=== PATIENT | male | born 1985 | race African-American/Black ===

== ENCOUNTER 2020-09-07 11:54 | Emergency (ER) | payer MEDICAID ==
[~2020-09-07] VITALS: Ht 182.9 cm; Wt 77.1 kg
[2020-09-07 12:00] VITALS: BP 137/73
[2020-09-07] MEDS ORDERED: CEFTRIAXONE 1 G VIAL IM ONE (12:30)
--- NOTE | 2020-09-07 13:04 | NUR ---
URINE SPECIMEN COLLECTED AND SENT TO LAB.
[2020-09-07] MEDS ORDERED: LIDOCAINE /MPF 1% VIAL 5 ML VIAL ONE (13:05)
[2020-09-07] MEDS ORDERED: CEFTRIAXONE 500 MG VIAL ONE (13:05)
[2020-09-07] MEDS ORDERED: DOXY100C2 PO (13:44)
--- NOTE | 2020-09-07 14:03 | NUR ---
Patient discharged to home in stable condition. Written and verbal after care instructions given. Patient verbalizes understanding of instruction.
== END 2020-09-07 14:03 | disposition home or self-care (01) ==
LOC: ER 11:54
DX: A64 Unspecified sexually transmitted disease (principal); M06.9 Rheumatoid arthritis, unspecified
CPT/HCPCS: 36415; 86592; 87491; 87591; 96372; 99283; J0696; J3490